=== PATIENT | male | born 1975 | race Caucasian/White ===

== ENCOUNTER 2018-11-04 17:27 | Emergency (ER) | payer BC ==
[~2018-11-04] VITALS: Ht 185.4 cm; Wt 158.8 kg
[2018-11-04] MEDS ORDERED: BUPR-96 PO (17:55)
[2018-11-04] MEDS ORDERED: LISI10TA5 PO (17:55)
[2018-11-04] MEDS ORDERED: HYDROCHLOROTHIAZIDE PO (17:55)
[2018-11-04] MEDS ORDERED: TDAP DIPH,PERTUSS,TET VAC/PF 0.5 ML DISP.SYRIN IM ONE ×2 (18:00→18:22)
--- NOTE | 2018-11-04 18:37 | NUR ---
r hand abrasion noted and cleansed w 1 Lns. full rom and cap refll to r hand noted. advised rest. revioewed s and s of infection and advised return if symptoms increase change or persist. return if symptoms increase change or persist
[2018-11-04 19:10] VITALS: BP 113/55
== END 2018-11-04 19:10 | disposition home or self-care (01) ==
LOC: ER 17:27
DX: S51.851A Open bite of right forearm, initial encounter (principal); I10 Essential (primary) hypertension; Z79.899 Other long term (current) drug therapy; W54.0XXA Bitten by dog, initial encounter; Y93.89 Activity, other specified; Y92.89 Other specified places as the place of occurrence of the external cause; Y99.8 Other external cause status
CPT/HCPCS: 90715; A4663